=== PATIENT | female | born 1990 | race Caucasian/White ===

== ENCOUNTER 2021-04-06 08:54 | Inpatient (IN) | payer BC ==
[2021-04-06] VITALS (29 sets, daily range): BP systolic 102–143; BP diastolic 49–77; PULSE 59–97; TEMP 98–98.4
[~2021-04-06] VITALS: Ht 177.8 cm; Wt 93.2 kg
[~2021-04-06 08:54] MED LIST: BCP TD; EFFEXOR XR75 MG/CAP PO; LAMICTAL150 MG PO; VITAMIN D1000 IU PO
--- NOTE | 2021-04-06 09:00 | NUR ---
Pt arrived on unit ambulatory and with complaints of SROM at 0400 with clear fluid. Pt reports contractions every 5 minutes since SROM and also report normal movement. EFM and toco monitors started. Vital signs WNL. SVE by this RN FT/0/-3 and positive amnio-trace.
[2021-04-06] MEDS ORDERED: PRENATAL (09:42)
[2021-04-06] MEDS ORDERED: FIBER GUMMIES2.5 GM PO (09:42)
[2021-04-06 09:59] LABS: BASO % 0.2 % (0.0-2.0); EOS % 0.4 % (0-4.0); GRAN # 6.2 K/mm3 (1.4-6.5); HEMOGLOBIN 11.9 g/dl (12.5-16.0); LYMPH # 2.4 K/mm3 (1.2-3.4); LYMPH % 26.1 % (20.0-51.0); MEAN CELL VOLUME 86 fl (80.0-100.0); MEAN CORPUSCULAR HEMOGLOBIN 29 pg (27.0-31.0); MEAN CORPUSCULAR HGB CONC 34 g/dl (33.0-37.0); MONO # 0.5 K/mm3 (0.1-0.6); MONO % 5.7 % (1.7-9.3); PLATELET COUNT 194 K/mm3 (130-400); RED BLOOD COUNT 4.13 M/mm3 (4.10-5.30); REDCELL DISTRIBUTION WIDTH-CV 14.6 % (11.5-14.5)
[2021-04-06 10:00] LABS: HEMATOCRIT 35.4 % (37.0-47.0)
--- NOTE | 2021-04-06 14:55 | NUR ---
1455: COLORING MACHINE OPERATOR PRESENTS TO NURSES STATION AND STATES PT IS "FEELING PUSHY" AND UNABLE TO ABOID PUSHING WITH CONTRACTIONS. THIS NURSE TO ROOM TO ASSESS. SVE COMPLETE. PT REMAINS UNBLOCKED, WITH PITOCIN RUNNING PER AUGMENTATION ORDERS AT 14MU/HR. CATEGORY 1 STRIP AT THIS TIME. CONTRACTIONS TRACING Q2-2.5 MINUTES. SUCCESSFUL PUSHING EFFORTS, ABLE TO VISUALIZE HEAD WITH PUSHING. NOTIFIED. 1505: ROLES TO BEDSIDE TO PREPARE FOR DELIVERY. PT CONTINUES PUSHING WITH SUCCESFUL PUSHING EFFORTS. ABLE TO CONTINUOUSLY VISUALIZE HEAD THROUGHOUT PUSHING AND IN BETWEEN CONTRACTIONS. 1514: SPONTANEOUS VAGINAL DELIVERY OF VIABLE FEMALE INFANT AT THIS TIME PER . INFANT PLACED ON MATERNAL ABDOMEN. CARE ASSUMED BY LYLA GONZALEZ. 1518: OF PLACENTA PER . BEGINS REPAIR OF 2ND DEGREE PERINEAL LACERATION WITH LIDOCAINE. PT TOLERATES PROCEDURE WELL. LOCHIA MODERATE AT THIS TIME. NO CLOTS. FUNDUS REMAINS FIRM AT UMBILICUS. 1740: PT LOCHIA WNL. FUNDUS FIRM AT UMBILICUS. VITAL SIGNS STABLE. AMBULATORY TO RESTROOM WITHOUT DIFFICULTY FOR PP CARES. KRYSTYNA CARE PROVIDED AND PT ASSISTED INTO CLEAN GOWN, PAD AND ICE PACK. TOLERATED ACTIVITY WELL. MOVED TO PP ROOM #216 TO CONTINUE PP CARES. SUPPER PROVIDED AND BABY TO NURSERY FOR FIRST BATH. ORIENTED TO NEW ROOM AND PP POC. DENIES FURTHER QUESTIONS OR CONCERNS AT THIS TIME.
[2021-04-06] MEDS ORDERED: MOTRIN 800800 MG/TAB PO (22:15)
[2021-04-07 02:00] VITALS: BP 115/59; PULSE 68; TEMP 98.3
[2021-04-07 08:00] VITALS: BP 106/59; PULSE 98; TEMP 98.1
--- NOTE | 2021-04-07 11:14 | NUR ---
Handle Attacher offered congrats to patient while family was in room.
[2021-04-07 13:00] VITALS: BP 99/55; PULSE 81; TEMP 98.4
[2021-04-07 17:00] VITALS: BP 111/44; PULSE 82; TEMP 98.2
[2021-04-07 20:00] VITALS: BP 104/53; PULSE 75; TEMP 98.1
[2021-04-08 02:30] VITALS: BP 108/62; PULSE 82; TEMP 97.8
[2021-04-08 07:24] VITALS: BP 112/62; PULSE 78; TEMP 98.2
== END 2021-04-08 11:48 | disposition home or self-care (01) | DRG 807 ==
LOC: LDRO 08:54 → LDR 09:29 → OB 17:45
PROVIDERS: ADMIT Obstetrics & Gynecology
PROC: 10E0XZZ Delivery of Products of Conception, External Approach (ICD-10-PCS; principal; 2021-04-06)
PROC: 0KQM0ZZ Repair Perineum Muscle, Open Approach (ICD-10-PCS; 2021-04-06)
DX: O48.0 Post-term pregnancy (principal); Z37.0 Single live birth; O99.344 Other mental disorders complicating childbirth; F42.9 Obsessive-compulsive disorder, unspecified; F32.9 Major depressive disorder, single episode, unspecified; F41.9 Anxiety disorder, unspecified; O70.1 Second degree perineal laceration during delivery; Z3A.41 41 weeks gestation of pregnancy
CPT/HCPCS: J2590; J7120